=== PATIENT | male | born 1955 | race Caucasian/White ===

== ENCOUNTER 2025-07-21 13:27 | Emergency (ER) | payer BC, SELFPAY ==
[2025-07-21] VITALS (14 sets, daily range): BP systolic 143–175; BP diastolic 86–99; PULSE 89–109; RESP 14–22; TEMP 37.1; O2SAT 92–95
--- NOTE | 2025-07-21 14:07 | W.ED.GENAD ---
Discharge Plan Disposition Patient Disposition: Home Condition: Stable Discharge Details Clinical Impression: Ascites Primary Care Provider: Gayle,Local ED Provider: John Wolf Home Meds and New Rx's Prescriptions: New spironolactone 100 mg tablet 100 mg PO QAM Qty: 30 0RF furosemide [Lasix] 40 mg tablet 40 mg PO QAM Qty: 30 0RF Discharge Instructions Instructions: Fluid in the belly (ascites), High Potassium Diet, Furosemide, Spironolactone Additional Instructions: You were seen in the emergency department for your ascites, you have severe fatty liver disease but your liver enzymes are improved compared to your values at [facility], your AST is 44 with the upper limit of normal being 34, I do not call this severe until it is at least 3 times the upper limit of normal, your ALT has normalized and alk phos is normal, your total bilirubin is 1.2 with 0.5 conjugated bilirubin and no sign of obstruction of the biliary tree on ultrasound, your pancreas enzymes are normal and you have no elevated white blood cells indicating infection at this time. I have placed you on the referral list for the general surgery practice to get therapeutic paracentesis where they drained the fluid from your abdomen, you will feel much better after this procedure and may need these regularly scheduled in the future. I have sent you a prescription for 2 different diuretics these are water pills that will make you pee large volume, take these in the morning, please take multivitamin and [id number] supplements or eat a high potassium diet as these diuretics can deplete your potassium, you should have your primary care provider schedule you for routine checks of your potassium level, present to the ER for any profound weakness, palpitations with treatment of this. You also need to reduce your salt intake. Stand Alone Forms: Portal Information Referrals: [facility] [Provider Group] [facility] [Provider Group] Discharge Data Discharge Date/Time-TO BE ENTERED AT DEPARTURE: 07/21/25 16:04 HPI General Date/Time Provider Initiated Documentation: 07/21/25 13:36. HPI Narrative: 69 year-old male presents to ED today by POV/ambulating with his son with a chief complaint of ascites, 0.5lb weight gain per day for a few days, intermittent explosive diarrhea and constipation with poor oral intake with onset of fatty liver diagnosis 7 weeks ago at [facility]- states he has since stopped drinking. Quality described as no abdominal pain, endorses some shortness of breath sometimes, no radiation to fever, nausea/vomiting, jaundiced, cough, bloody diarrhea, black stools. Severity is described as unable to quantify. Palliating factors include nothing specific. Provoking factors include nothing specific. Patient has severe chronic psoriasis but states that is not the purpose of today's visit. Patient not anticoagulated. Related Data Home Medications Medication Instructions Recorded Confirmed furosemide 40 mg tablet (Lasix) 40 mg PO QAM #30 tabs 07/21/25 spironolactone 100 mg tablet 100 mg PO QAM #30 tabs 07/21/25 Previous Rx's Medication Instructions Recorded furosemide 40 mg tablet (Lasix) 40 mg PO QAM #30 tabs 07/21/25 spironolactone 100 mg tablet 100 mg PO QAM #30 tabs 07/21/25 Allergies Allergy/AdvReac Type Severity Reaction Status Date / Time Penicillins Allergy Unknown Unknown Verified 07/21/25 13:40 General Stated Complaint: GenMedical GABRIELA: 3 Review of Systems All systems reviewed & are unremarkable except as noted in HPI and below Exam Narrative Exam Narrative: GENERAL APPEARANCE: Well-nourished, non-toxic, awake and alert, atraumatic, no acute distress. SKIN: Warm, pink, dry, intact, without rashes/lesions/ulcerations. No jaundice. HEAD: Normocephalic, atraumatic, normal hair distribution for gender/age. EYES: Normal conjunctiva, no exudates on lids/lashes. ENT: Nares patent, no circumoral cyanosis, no facial swelling NECK: Supple, trachea midline, painless cervical ROM. LUNGS/CHEST: Lungs CTA bilaterally-no focally diminished or absent lung sounds, no rales at bases, non-labored respirations, normal A/P diameter, symmetrical expansion, no chest wall deformity HEART (CV/PV): Regular rate and rhythm without murmur, no peripheral edema, no JVD. ABDOMEN: Soft, distended, no guarding, significant ascites without tenderness. MSK: Normal ROM, no swelling/deformity to bilateral UEs or LEs, moving all extremities without weakness, no cyanosis, spine midline without tenderness, normal curvature. NEURO: Mental Status AAOx4 - alert to person, place, time, events No facial droop, no forehead involvement. Motor: No focal weakness - strength 5/5 in bilateral UEs and LEs, proximal and distal, symmetric. Sensory: sensation intact to light touch globally. Gait normal: patient ambulated without ataxia into ED room. PSYCH: euthymic, cooperative, pleasant, appropriate speech Course Vital Signs Vital signs: Vital Signs Temperature 37.1 C 07/21/25 13:34 Pulse 109 H 07/21/25 13:34 Respiratory Rate 20 07/21/25 13:34 Blood Pressure 143/91 H 07/21/25 13:34 Pulse Oximetry 92 07/21/25 13:34 Temperature 37.1 C 07/21/25 13:38 Pulse 109 H 07/21/25 13:38 Respiratory Rate 20 07/21/25 13:38 Blood Pressure 143/91 H 07/21/25 13:38 Blood Pressure Position Sitting 07/21/25 13:38 Pulse Oximetry 92 07/21/25 13:38 Oxygen Delivery Method Room Air 07/21/25 13:38 Oxygen Flow Rate 0 07/21/25 13:38 Medical Decision Making This dictation utilizes [id number] dictation software and may contain unedited grammatical errors. 69 year-old male presents to ED today by POV/ambulating with his son with a chief complaint of ascites, 0.5lb weight gain per day for a few days, intermittent explosive diarrhea and constipation with poor oral intake with onset of fatty liver diagnosis 7 weeks ago at [facility]- states he has since stopped drinking. Quality described as no abdominal pain, endorses some shortness of breath sometimes, no radiation to fever, nausea/vomiting, jaundiced, cough, bloody diarrhea, black stools. Severity is described as unable to quantify. Palliating factors include nothing specific. Provoking factors include nothing specific. Patients' medical history: doesnt go to the doctors very often- severe fatty liver on CT in Jun. Family and social history: former heavy drinker, denies tobacco use. Pertinent exam findings / vital signs include severe ascites without abdominal tenderness, lungs CTA question diminishment at left base, hypoactive bowel sounds, nontoxic and afebrile. Differential / pathologies of concern include pleural effusion, ascites, not SBP, hepatitis. Diagnostic studies of: -CBC, BMP, liver panel, lactate, BNP, urinalysis, troponin, ammonia, lipase, PT/INR, acute hepatitis panel, US ABD LTD-RUQ. - CBC is unremarkable - INR 1.3 - CMP shows no actionable abnormality, conjugated bilirubin is 0.5, AST is mildly elevated at 44, ALT normalized, vastly improved over his numbers reviewed from [facility] visit - Lipase negative - UA sample not provided - BNP negative - Troponin negative - Ammonia negative - Hepatitis panel is negative - Ultrasound of the abdomen shows a large quantity of ascites Interventions of: -Referred to [facility] General Surgery for therapeutic paracentesis. Referred to lab visit for his electrolytes to be checked in ~ 1 week, recommend high potassium diet & good multi-vitamin/supplements ED Course/Assessment/Plan: 69-year-old male with history of alcohol use disorder presents with his son with increase in abdominal bloating in the setting of ascites and severe fatty liver seen at [facility], patient states he has ceased drinking and he had elevated LFTs at outpatient visit in [facility], he states that [facility] told him that he was 90% likely to improve his liver function and not have any complication from this but he has significantly increased ascites, his blood work shows improvement and he is nontender in the abdomen indicating very low likelihood of any infectious etiology, he needs therapeutic paracentesis and I was happy to refer him to our general surgery practice as well as set him up with primary care at [facility], strict return criteria for any severe increase in abdominal pain, respiratory distress or any other emergent concerns. Findings not consistent with obstructive biliary pathology, biliary cholangitis, respiratory distress or large pleural effusions, hepatitis or liver failure. Disposition of Ascites. Patient verbalized understanding of the plan and return to ED criteria and engaged in shared decision making. Medical Records Medical records reviewed: Yes I reviewed the patient's medical records. Imaging Data Radiologic Study: Attestation: I personally reviewed and interpreted this imaging study as follows: Imaging: Ultrasound Radiologist's impression: EXAM: US ABDOMEN LIMITED CLINICAL HISTORY: RUQ; liver dz with worsening ascites TECHNIQUE: Ultrasound of the right upper quadrant performed using standard protocol. COMPARISON: No exams were available for comparison FINDINGS: LIVER: Normal size. Mildly increased echogenicity. Mild coarsening of the echotexture. No focal liver lesions are seen. GALLBLADDER: No evidence of cholelithiasis. No evidence of wall thickening. No pericholecystic fluid identified. TAYLOR'S SIGN: Negative. BILIARY SYSTEM: No intrahepatic or extrahepatic biliary ductal dilation. RIGHT KIDNEY: Normal size. No evidence of renal calculi. No evidence of hydronephrosis. No suspicious renal mass. No cyst identified. PANCREAS: Not visualized. ABDOMINAL AORTA AND IVC: Visualized portions normal caliber. ASCITES: Large quantity of ascites. RUQ 6.4cm. RLQ 27.7cm. LLQ 19.0cm. LUQ 19.3 IMPRESSION: Large quantityof ascites. Lab Data Lab results reviewed: Yes I reviewed the patient's lab results. Labs: Laboratory Tests Range/Units 07/21/25 07/21/25 14:10 14:25 WBC (4.4-10.8) 10^3/uL 9.86 RBC (4.36-5.78) 10^6/uL 4.94 Hgb (13.5-17.5) g/dL 15.6 Hct (40.0-50.0) % 47.7 MCV (80-95) fL 97 H MCH (27.0-33.0) pg 31.6 MCHC (32.0-36.0) % 32.7 RDW (11.8-14.1) % 13.2 Plt Count (130-400) 10^3/uL 217 MPV (8.0-11.0) fL 10.1 Immature Gran % % 0.3 Neutrophils % % 80.3 Lymphocytes % % 9.3 Monocytes % % 8.5 Eosinophils % % 0.7 Basophils % % 0.9 Nucleated RBC % (0.0-0.3) % 0.0 Absolute Neutrophils (1.2-6.7) 10^3/uL 7.91 H Absolute Lymphocytes (1.2-3.4) 10^3/uL 0.92 L Absolute Monocytes (0.1-0.8) 10^3/uL 0.84 H Absolute Eosinophils (0.0-0.7) 10^3/uL 0.07 Absolute Basophils (0.0-0.2) 10^3/uL 0.09 PT (9.1-11.1) sec 12.6 H INR (0.9-1.1) 1.3 H VBG Lactate (<or=2.0) mmol/L 2.0 Sodium (136-145) mmol/L 139 Potassium (3.5-5.1) mmol/L 3.7 Chloride (98-107) mmol/L 102 Carbon Dioxide (20.0-31.0) mmol/L 28.6 Anion Gap (3-11) mmol/L 8.4 BUN (9-23) mg/dL 6 L Creatinine (0.73-1.18) mg/dL 0.7 L Est GFR (CKD-EPI 2020) (mL/min/1.73m2) 108.28 Glucose (74-106) mg/dL 127 H Calcium (8.3-10.6) mg/dL 8.6 Total Bilirubin (0.2-1.2) mg/dL 1.20 Conjugated Bilirubin (<=0.3) mg/dL 0.5 H AST (<34) U/L 44 H ALT (10-49) U/L 17 Alkaline Phosphatase (46-116) U/L 90 Ammonia (11-32) umol/L 22 Troponin I (<54) ng/L < 3 NT-Pro-B Natriuret Pep (<300) pg/mL 132 Total Protein (5.7-8.2) g/dL 6.5 Albumin (3.4-5.0) g/dL 3.2 L Lipase (<53) U/L 19 Hepatitis A IgM Ab (Negative) Negative Hep Bs Antigen (Negative) Negative Hep B Core Total Ab (Negative) Negative Hepatitis C Antibody (Negative) Negative PFSH All Active Problems (Updated 07/21/25 @ 15:20 by CASANDRA Cunningham) Ascites (Acute) Social History Smoking risk assessment performed?: No
[2025-07-21 14:30] LABS: Abs Immature Grans 0.03 10^3/uL (0.0-0.06); HCT 47.7 % (40.0-50.0); HGB 15.6 g/dL (13.5-17.5); Immature Grans % 0.3 %; MCH 31.6 pg (27.0-33.0); MCHC 32.7 % (32.0-36.0); MCV 97 fL (80-95); MPV 10.1 fL (8.0-11.0); Platelet Count 217 10^3/uL (130-400); RBC 4.94 10^6/uL (4.36-5.78); RDW 13.2 % (11.8-14.1); RDW-SD 47.5 fL; WBC 9.86 10^3/uL (4.4-10.8)
--- NOTE | 2025-07-21 14:30 | DI.US_ITS ---
Exam(s) US ABDOMEN LIMITED EXAM: US ABDOMEN LIMITED CLINICAL HISTORY: RUQ; liver dz with worsening ascites TECHNIQUE: Ultrasound of the right upper quadrant performed using standard protocol. COMPARISON: No exams were available for comparison FINDINGS: LIVER: Normal size. Mildly increased echogenicity. Mild coarsening of the echotexture. No focal liver lesions are seen. GALLBLADDER: No evidence of cholelithiasis. No evidence of wall thickening. No pericholecystic fluid identified. TAYLOR'S SIGN: Negative. BILIARY SYSTEM: No intrahepatic or extrahepatic biliary ductal dilation. RIGHT KIDNEY: Normal size. No evidence of renal calculi. No evidence of hydronephrosis. No suspicious renal mass. No cyst identified. PANCREAS: Not visualized. ABDOMINAL AORTA AND IVC: Visualized portions normal caliber. ASCITES: Large quantity of ascites. RUQ 6.4cm. RLQ 27.7cm. LLQ 19.0cm. LUQ 19.3 IMPRESSION: Large quantityof ascites. DATA REPOSITORY:
[2025-07-21 14:52] LABS: Lipase 19 U/L (<53)
[2025-07-21 14:54] LABS: ALT 17 U/L (10-49); AST 44 U/L (<34); Albumin 3.2 g/dL (3.4-5.0); Alkaline Phosphatase 90 U/L (46-116); Anion Gap 8.4 mmol/L (3-11); BUN 6 mg/dL (9-23); Bilirubin, Direct 0.5 mg/dL (<=0.3); Bilirubin, Total 1.20 mg/dL (0.2-1.2); CO2 28.6 mmol/L (20.0-31.0); Calcium 8.6 mg/dL (8.3-10.6); Chloride 102 mmol/L (98-107); Glucose 127 mg/dL (74-106); Potassium 3.7 mmol/L (3.5-5.1); Sodium 139 mmol/L (136-145); Total Protein 6.5 g/dL (5.7-8.2)
[2025-07-21 15:00] LABS: INR 1.3 (0.9-1.1); Prothrombin Time 12.6 sec (9.1-11.1)
[2025-07-21 15:01] LABS: Troponin I < 3 ng/L (<54)
[2025-07-21 15:03] LABS: Ammonia 22 umol/L (11-32)
[2025-07-22 01:06] LABS: Hepatitis A Antibody IgM Negative (Negative); Hepatitis C Ab w Rflx HCV PCR Negative (Negative)
== END 2025-07-21 16:04 | disposition home or self-care (01) ==
PROVIDERS: Emergency Provider Physician Assistant
DX: R18.8 Other ascites (principal); R19.7 Diarrhea, unspecified
CPT/HCPCS: 99284 ×2; 36415; 80048; 80076; 83690; 86704; 86709; 86803; 87340; 76705; 82140; 83605; 83880; 84484; 85025; 85610